=== PATIENT | male | born 1955 | race African-American/Black ===

== ENCOUNTER 2018-12-01 11:11 | Inpatient (IN) | payer MEDICARE, MEDICAID ==
[~2018-12-01] VITALS: Ht 172.7 cm; Wt 75.7 kg
[~2018-12-01 11:11] MED LIST: ASPI-986 PO; ATEN-175 PO; ATOR10TA PO; BENA20TA10 PO; CLOP75TA16 PO; FLUT1DIS IH; HYDR-3513 PO; METF-414 PO
[2018-12-01] MEDS ORDERED: LEVETIRACETAM 1000MG/100ML 100 ML IV ONE (12:45)
[2018-12-01] MEDS ORDERED: LORAZEPAM 2MG/ML CPJ IV ONE (12:45)
[2018-12-01 13:01] LABS: BASOPHILS % 0.7 % (0.0-2.0); EOSINOPHILS % 0.5 % (0.0-5.0); HEMATOCRIT. 40.5 % (42.0-52.0); HEMOGLOBIN. 13.8 g/dL (14.0-18.0); LYMPHOCYTES % 14.2 % (20.0-50.0); MEAN CORPUSCULAR HEMOGLOBIN 28.5 pg (28.0-32.0); MEAN CORPUSCULAR VOLUME 83.7 fL (80.0-94.0); MONOCYTES % 10.1 % (2.0-8.0); NEUTROPHILS % 74.5 % (40.0-76.0); PLATELET 183 x1000/uL (130-400); RED BLOOD CELL COUNT 4.84 mill/uL (4.7-6.1); RED CELL DISTRIBUTION WIDTH 16.4 % (11.6-14.6)
[2018-12-01 13:06] LABS: CHLORIDE 100 mEq/L (98-107)
[2018-12-01 13:10] LABS: ETHANOL BLOOD < 10 mg/dL
[2018-12-01] MEDS ORDERED: ACETAMINOPHEN 325MG TABLET PO PRN (16:45)
[2018-12-01] MEDS ORDERED: DOCUSATE SODIUM 100MG CAPSULE PO PRN (16:45)
[2018-12-01] MEDS ORDERED: DEXTROSE 50% WATER 50ML SYRINGE IV PRN ×2 (16:45)
[2018-12-01] MEDS ORDERED: LORAZEPAM 2MG/ML CPJ IV PRN (16:45)
[2018-12-01] MEDS ORDERED: MAGNESIUM/ALUMINUM HYDROXIDE/SIMETHICONE 30ML UDC PO PRN (16:45)
[2018-12-01] MEDS ORDERED: CLONIDINE 0.1MG TABLET PO PRN (16:45)
[2018-12-01] MEDS ORDERED: ONDANSETRON HCL 4MG/2ML INJ IV PRN (16:45)
[2018-12-01] MEDS ORDERED: DIPHENHYDRAMINE 50MG/ML VIAL IV PRN (16:45)
[2018-12-01] MEDS ORDERED: PANTOPRAZOLE SODIUM 40 MG/VIAL IV NR (19:15)
[2018-12-01] MEDS: INSULIN LISPRO 100 UNITS/ML SUBCUT SCH ×2 (19:45→21:00)
[2018-12-01] MEDS: BLOOD SUGAR DIAGNOSTIC STRIP TEST SCH (21:00)
[2018-12-01] MEDS ORDERED: INSULIN GLARGINE UD 100 UNITS/ML SYR SUBCUT SCH (22:00)
[2018-12-01 22:14] LABS: CREATINE KINASE 233 IU/L (39-308)
[2018-12-02] VITALS: BP_SYST 121; BP_DIAS 74; BP_DIAS 76
[2018-12-02] MEDS: INSULIN GLARGINE UD 100 UNITS/ML SYR SUBCUT SCH ×2 (01:00→01:49)
[2018-12-02 04:00] VITALS: BP 102/66
[2018-12-02] MEDS: BLOOD SUGAR DIAGNOSTIC STRIP TEST SCH (06:22)
[2018-12-02 06:43] LABS: BASOPHILS % 0.9 % (0.0-2.0); EOSINOPHILS % 2.8 % (0.0-5.0); HEMATOCRIT. 42.3 % (42.0-52.0); HEMOGLOBIN. 14.3 g/dL (14.0-18.0); LYMPHOCYTES % 28.5 % (20.0-50.0); MEAN CORPUSCULAR HEMOGLOBIN 28.3 pg (28.0-32.0); MEAN CORPUSCULAR VOLUME 83.5 fL (80.0-94.0); MEAN PLATELET VOLUME 8.6 fl (7.4-10.4); MONOCYTES % 11.5 % (2.0-8.0); NEUTROPHILS % 56.3 % (40.0-76.0); PLATELET 182 x1000/uL (130-400); RED BLOOD CELL COUNT 5.07 mill/uL (4.7-6.1)
[2018-12-02 07:00] LABS: CHLORIDE 100 mEq/L (98-107)
[2018-12-02 07:21] LABS: PHOSPHORUS 3.2 mg/dL (2.5-4.9)
[2018-12-02 07:22] LABS: CREATINE KINASE 178 IU/L (39-308)
[2018-12-02 08:00] VITALS: BP 101/65
[2018-12-02] MEDS: PANTOPRAZOLE SODIUM 40 MG/VIAL IV SCH (09:00)
[2018-12-02] MEDS ORDERED: CLON1TAB MT (10:20)
[2018-12-02] MEDS: BENAZEPRIL 10MG TABLET PO SCH (10:30)
[2018-12-02] MEDS: ATENOLOL 25MG TABLET PO SCH (10:30)
[2018-12-02] MEDS ORDERED: ASPIRIN 325MG EC TABLET PO SCH (10:30)
[2018-12-02 12:00] VITALS: BP 127/81
[2018-12-02 12:35] LABS: *AMPHETAMINES SCREEN URINE NEGATIVE (NEGATIVE); *BARBITURATES SCREEN URINE NEGATIVE (NEGATIVE); *BENZODIAZEPINES SCREEN URINE PRESUMTIVE POSITIVE (NEGATIVE)
[2018-12-02 12:36] LABS: *COCAINE SCREEN URINE NEGATIVE (NEGATIVE); CANNABINOID URINE SCREEN NEGATIVE (NEGATIVE); METHADONE URINE SCREEN NEGATIVE (NEGATIVE); PHENCYCLIDINE URINE SCREEN NEGATIVE (NEGATIVE)
[2018-12-02 12:38] LABS: OPIATES URINE SCREEN NEGATIVE (NEGATIVE)
[2018-12-02 16:00] VITALS: BP 103/68
[2018-12-02] MEDS: CLOPIDOGREL 75MG TABLET PO SCH (16:42)
[2018-12-02] MEDS: METFORMIN HCL 500MG TABLET PO SCH (16:43)
[2018-12-02 17:58] LABS: CREATINE KINASE 171 IU/L (39-308)
[2018-12-02] MEDS ORDERED: METFORMIN HCL 500MG TABLET PO SCH (18:10)
[2018-12-02 20:00] VITALS: BP 114/75
[2018-12-02] MEDS: LEVETIRACETAM 500MG TABLET PO SCH ×2 (21:00→21:02)
[2018-12-02] MEDS ORDERED: ATORVASTATIN CALCIUM 10MG TABLET PO SCH (21:00)
[2018-12-02] MEDS: CLONAZEPAM 1MG TABLET PO SCH (21:02)
[2018-12-03] VITALS: BP 115/55
[2018-12-03 04:00] VITALS: BP 104/70
[2018-12-03 06:43] LABS: BASOPHILS % 0.8 % (0.0-2.0); EOSINOPHILS % 4.3 % (0.0-5.0); HEMATOCRIT. 43.2 % (42.0-52.0); HEMOGLOBIN. 14.5 g/dL (14.0-18.0); LYMPHOCYTES % 25.2 % (20.0-50.0); MEAN CORPUSCULAR HEMOGLOBIN 27.9 pg (28.0-32.0); MEAN CORPUSCULAR VOLUME 83.1 fL (80.0-94.0); MEAN PLATELET VOLUME 8.3 fl (7.4-10.4); NEUTROPHILS % 58.7 % (40.0-76.0); PLATELET 187 x1000/uL (130-400); RED CELL DISTRIBUTION WIDTH 16.2 % (11.6-14.6)
[2018-12-03 07:01] LABS: CHLORIDE 100 mEq/L (98-107)
[2018-12-03 07:19] LABS: LDL CHOLESTEROL 119 mg/dL (5-100)
[2018-12-03 07:21] LABS: HDL CHOLESTEROL 35 mg/dL (40-59)
[2018-12-03 08:00] VITALS: BP 156/87
[2018-12-03] MEDS ORDERED: ASPIRIN 81MG EC TABLET PO SCH (09:00)
[2018-12-03] MEDS: BENAZEPRIL 10MG TABLET PO SCH (09:00)
[2018-12-03] MEDS: PANTOPRAZOLE SODIUM 40 MG/VIAL IV SCH ×2 (09:00→09:27)
[2018-12-03] MEDS: ATENOLOL 25MG TABLET PO SCH (09:26)
[2018-12-03] MEDS: CLOPIDOGREL 75MG TABLET PO SCH (09:26)
[2018-12-03] MEDS: CLONAZEPAM 1MG TABLET PO SCH (09:26)
[2018-12-03] MEDS: METFORMIN HCL 500MG TABLET PO SCH (09:27)
[2018-12-03] MEDS: LEVETIRACETAM 500MG TABLET PO SCH (09:35)
[2018-12-03 12:00] VITALS: BP 103/68
[2018-12-03 14:32] VITALS: BP 103/68
[2018-12-03 16:00] VITALS: BP 107/69
== END 2018-12-03 16:49 | disposition home or self-care (01) | DRG 101 ==
LOC: ER 11:11 → 7WST 16:07 → EDBEDREQ 16:13 → EDBEDREQTM 16:13 → ENRESERV 20:32
PROVIDERS: ADMIT Family Medicine Adult Medicine; ATTEND Family Medicine Adult Medicine
PROC: 4A00X4Z Measurement of Central Nervous Electrical Activity, External Approach (ICD-10-PCS; principal; 2018-12-03)
DX: G40.909 Epilepsy, unspecified, not intractable, without status epilepticus (principal); E11.65 Type 2 diabetes mellitus with hyperglycemia; I10 Essential (primary) hypertension; I25.10 Atherosclerotic heart disease of native coronary artery without angina pectoris; G20 Parkinson's disease; E78.5 Hyperlipidemia, unspecified; E78.00 Pure hypercholesterolemia, unspecified; Z96.649 Presence of unspecified artificial hip joint; G25.0 Essential tremor; Z79.02 Long term (current) use of antithrombotics/antiplatelets; Z79.82 Long term (current) use of aspirin; Z82.0 Family history of epilepsy and other diseases of the nervous system; Z82.49 Family history of ischemic heart disease and other diseases of the circulatory system; Z95.5 Presence of coronary angioplasty implant and graft; Z88.8 Allergy status to other drugs, medicaments and biological substances; Z79.84 Long term (current) use of oral hypoglycemic drugs; Z79.899 Other long term (current) drug therapy
CPT/HCPCS: 36415; 70551; 71045; 80048; 80061; 80305; 80320; 82550; 82962; 83036; 83735; 84100; 84443; 87077; 93005; 93306; 93970; 97116; 97163; 97166; 99285; C9113; J1815; J1953; J2060; G0480